=== PATIENT | male | born 1960 | race Two or more races ===

== ENCOUNTER 2022-09-29 04:38 | Emergency (ER) | payer BC, MEDICAID ==
[~2022-09-29] VITALS: Ht 175.3 cm; Wt 64.9 kg
[~2022-09-29 04:38] MED LIST: ALBU18HF2 IH; ENOX100S3 SQ; LACT1CAP57 PO; ONDA4VIA6 IV; TRAZ-89 PO; ZOLP5TAB8 PO
[2022-09-29 05:06] VITALS: BP 121/86
--- NOTE | 2022-09-29 11:10 | NUR ---
Pt complaining of right ankle pain x3 weeks. Pedal pulse present, able to move toes, skin pink and warm to touch and color appropriate to race. Patient alert and oriented x4, in no acute distrtess, ambulatory and stable.
== END 2022-09-29 11:37 | disposition home or self-care (01) ==
LOC: ER 04:39
DX: S62.316A Displaced fracture of base of fifth metacarpal bone, right hand, initial encounter for closed fracture (principal); F31.9 Bipolar disorder, unspecified; Z88.8 Allergy status to other drugs, medicaments and biological substances; Z88.0 Allergy status to penicillin; Z79.899 Other long term (current) drug therapy; X50.9XXA Other and unspecified overexertion or strenuous movements or postures, initial encounter; Y93.89 Activity, other specified; Y92.89 Other specified places as the place of occurrence of the external cause; Y99.8 Other external cause status
CPT/HCPCS: 73610; 99283; L4360

== ENCOUNTER 2022-11-16 20:49 | Emergency (ER) | payer BC, MEDICAID ==
[~2022-11-16] VITALS: Ht 175.3 cm; Wt 58.5 kg
[2022-11-16 21:00] VITALS: BP 103/60
[2022-11-16] MEDS ORDERED: DOXYCYCLINE 100MG CAPSULE PO STA (21:09)
[2022-11-16] MEDS ORDERED: clindamycin 150mg capsule PO ONE (21:10)
[2022-11-16] MEDS ORDERED: TETanus/Pertussis (Acell)/Diphther VAC/PF (Tdap-Adult) 0.5ml syringe IMVAC ONE (21:10)
[2022-11-16] MEDS ORDERED: DOXY-135 PO (21:14)
[2022-11-16] MEDS ORDERED: CLIN150C98 PO (21:14)
== END 2022-11-16 21:31 | disposition home or self-care (01) ==
LOC: ER 20:50
DX: S51.812A Laceration without foreign body of left forearm, initial encounter (principal); F41.9 Anxiety disorder, unspecified; F32.A Depression, unspecified; Z87.01 Personal history of pneumonia (recurrent); Z72.89 Other problems related to lifestyle; Z88.1 Allergy status to other antibiotic agents; Z88.0 Allergy status to penicillin; Z79.899 Other long term (current) drug therapy; W54.0XXA Bitten by dog, initial encounter; Y93.89 Activity, other specified; Y92.89 Other specified places as the place of occurrence of the external cause; Y99.8 Other external cause status
CPT/HCPCS: 90471; 90715; 99283

== ENCOUNTER 2024-04-27 16:20 | Emergency (ER) | payer BC ==
[~2024-04-27] VITALS: Ht 177.8 cm; Wt 70.5 kg
[~2024-04-27 16:20] MED LIST changes: -ALBU18HF2 IH; +CLIN-232 PO; -ENOX100S3 SQ; -LACT1CAP57 PO; +NO HOME MEDS; -ONDA4VIA6 IV; -TRAZ-89 PO; -ZOLP5TAB8 PO
[2024-04-27 16:21] VITALS: BP 122/71; PULSE 90; TEMP 98; O2SAT 98
[2024-04-27] MEDS ORDERED: SULF1TAB48 PO (16:50)
[2024-04-27 16:55] VITALS: RESP 16
== END 2024-04-27 16:57 | disposition home or self-care (01) ==
LOC: ER 16:21
DX: Z76.0 Encounter for issue of repeat prescription (principal); L03.90 Cellulitis, unspecified; Z88.0 Allergy status to penicillin; Z88.1 Allergy status to other antibiotic agents; Z79.2 Long term (current) use of antibiotics
CPT/HCPCS: 99281; 99283

== ENCOUNTER 2024-05-06 12:05 | Emergency (ER) | payer BC ==
[~2024-05-06] VITALS: Ht 175.3 cm; Wt 63.5 kg
[~2024-05-06 12:05] MED LIST changes: -CLIN-232 PO; +SULF1TAB48 PO
[2024-05-06] MEDS: CefTRIAXone 1000mg IM Kit (w/lidocaine diluent) IM ONE (15:23)
[2024-05-06] MEDS ORDERED: SULF1TAB49 PO (17:10)
[2024-05-06 17:16] VITALS: BP 144/78; PULSE 88; RESP 16; TEMP 97.8; O2SAT 99
== END 2024-05-06 17:19 | disposition home or self-care (01) ==
LOC: ER 12:06
DX: L02.412 Cutaneous abscess of left axilla (principal); L03.112 Cellulitis of left axilla; F41.9 Anxiety disorder, unspecified; F32.A Depression, unspecified; Z88.1 Allergy status to other antibiotic agents; Z88.0 Allergy status to penicillin; Z79.899 Other long term (current) drug therapy
CPT/HCPCS: 96372; 99283; J0696

== ENCOUNTER 2024-05-09 09:38 | Emergency (ER) | payer BC ==
[~2024-05-09] VITALS: Ht 175.3 cm; Wt 65.2 kg
[~2024-05-09 09:38] MED LIST changes: -SULF1TAB48 PO; +SULF1TAB49 PO
[2024-05-09] MEDS ORDERED: SULF1TAB45 PO (11:08)
[2024-05-09 11:18] VITALS: BP 140/64; PULSE 65; RESP 16; TEMP 98.2; O2SAT 99
== END 2024-05-09 11:37 | disposition home or self-care (01) ==
LOC: ER 09:38
DX: L03.113 Cellulitis of right upper limb (principal); F41.9 Anxiety disorder, unspecified; F32.A Depression, unspecified; Z88.1 Allergy status to other antibiotic agents; Z88.0 Allergy status to penicillin; Z79.899 Other long term (current) drug therapy
CPT/HCPCS: 99281